=== PATIENT | male | born 1970 | race Caucasian/White ===

== ENCOUNTER 2019-06-20 05:40 | Day surgery (SDC) | payer BC, OTHER ==
[~2019-06-20] VITALS: Ht 175.3 cm; Wt 68.0 kg
[~2019-06-20 05:40] MED LIST: PEPCID COMPLETE PO
[2019-06-20 06:22] VITALS: BP 101/54; Ht 175.3 cm; Wt 68.0 kg
[2019-06-20] MEDS ORDERED: HYDROCODON-ACE1 EA10 PO (07:46)
--- NOTE | 2019-06-20 08:38 | OP ---
PATIENT NAME: KATHY DE LEON MEDICAL RECORD: [id number] :74 LOCATION:D.OPS ADMISSION DATE: SURGEON: SHAHID HUMMEL MD DATE OF OPERATION: 06/20/2019 PREOPERATIVE DIAGNOSIS: Medial meniscus tear of the left knee. POSTOPERATIVE DIAGNOSIS: Medial meniscus tear of the left knee. PROCEDURE: Arthroscopic partial medial meniscectomy. SURGEON: Shahid Hummel MD ANESTHESIA: General. INTRAOPERATIVE COMPLICATIONS: None. SUMMARY OF PATHOLOGIC FINDINGS: The patient had a radial beak tear of the medial meniscus with no other pathologic findings noted whatsoever. OPERATIVE SUMMARY IN DETAIL: After obtaining the appropriate preoperative orthopedic surgery consent as well as anesthetic consultation, evaluation and clearance, the patient was brought to the operating room and placed on the operating table in the supine position. After adequate general laryngeal mask airway was administered, tourniquet was placed about the proximal aspect of the left lower extremity. Left lower extremity was then prepped and draped in routine sterile fashion. The leg was elevated and exsanguinated, tourniquet was inflated to 350 mmHg. At this point, timeout was taken given the patient's unique identifiers and agreed upon by all. Inferolateral portal was created, followed by superomedial and inferomedial portal. Diagnostic arthroscopy did reveal the above findings. Full radius resector was utilized to gently debride the meniscus back to a very good stable meniscal element. Having completed this, the knee was insufflated with 40 cc of Depo-Medrol and 30 cc of 0.25% Marcaine with epinephrine. Arthroscopy portals were closed in routine interrupted fashion using 4-0 Prolene. Sterile dressings were applied. The patient was awakened and taken to recovery room in stable condition. All final needle and sponge counts were correct. TRANSINT:[id number] Voice Confirmation ID: [id number] DOCUMENT ID: [id number] SHAHID HUMMEL MD at 0838 CC: [id number] DICTATION DATE: 06/20/19 0749 TYPING OFFICE WORKER: 06/20/19 0819 [facility] [address] [place] [address]
== END 2019-06-20 09:19 | disposition home or self-care (01) ==
LOC: D.OPS 05:40 → D.PAN 09:00 → D.OPS 09:00
PROVIDERS: ATTEND Orthopaedic Surgery
DX: S83.242A Other tear of medial meniscus, current injury, left knee, initial encounter (principal); M25.562 Pain in left knee; X58.XXXA Exposure to other specified factors, initial encounter

== ENCOUNTER → 2020-10-14 10:37 | Outpatient (CLI) | payer BC, OTHER ==
[2020-02-10 07:57] VITALS: BMI 22.2
[~2020-10-14 10:37] MED LIST changes: +HYDROCODON-ACE1 EA10 PO
== END | disposition home or self-care (01) ==
LOC: D.MRI 10:30
PROVIDERS: ATTEND Clinical Nurse Specialist Family Health
DX: M25.561 Pain in right knee (principal)